=== PATIENT | male | born 1995 | race Caucasian/White ===

== ENCOUNTER 2019-03-31 00:50 | Emergency (ER) | payer BC ==
[~2019-03-31] VITALS: Ht 175.2 cm; Wt 102.1 kg
[~2019-03-31 00:50] MED LIST: CLINDAMYCIN HC300 MG PO
== END 2019-03-31 02:04 | disposition home or self-care (01) ==
LOC: ED 00:50
DX: S51.011A Laceration without foreign body of right elbow, initial encounter (principal); Z79.2 Long term (current) use of antibiotics; W10.8XXA Fall (on) (from) other stairs and steps, initial encounter; Y93.89 Activity, other specified; Y92.89 Other specified places as the place of occurrence of the external cause; Y99.8 Other external cause status

== ENCOUNTER → 2020-11-30 | Outpatient (CLI) | payer BC | END | disposition home or self-care (01) | LOC: RAD 08:49 | PROVIDERS: ATTEND Nurse Practitioner Family | DX: I10 Essential (primary) hypertension (principal); Z83.3 Family history of diabetes mellitus ==

== ENCOUNTER → 2021-01-08 | Outpatient (CLI) | payer BC | END | disposition home or self-care (01) | LOC: US 07:19 | PROVIDERS: ATTEND Nurse Practitioner Family | DX: R17 Unspecified jaundice (principal); R10.0 Acute abdomen ==

== ENCOUNTER → 2021-04-02 | Outpatient (CLI) | payer BC | END | disposition home or self-care (01) | LOC: NM 03-26 09:45 | PROVIDERS: ATTEND Nurse Practitioner Family | DX: R17 Unspecified jaundice (principal); K90.49 Malabsorption due to intolerance, not elsewhere classified ==

== ENCOUNTER → 2021-05-08 | Day surgery (SDC) | payer BC ==
[~2021-05-08] VITALS: Ht 175.2 cm; Wt 104.3 kg
[~2021-05-08] MED LIST changes: +CALCIUM500 M1 PO; +CARAFATE1 G1 PO; +HYDROCHLOROTHIA25 M1 PO; +PROTONIX40 MG PO; +SUNMARK OMEPRAZ20 MG PO
[2021-05-08 08:50] VITALS: BP 140/95
[2021-05-08 09:58] VITALS: BP 113/64
[2021-05-08 10:15] VITALS: BP 108/69
[2021-05-08 10:30] VITALS: BP 122/71
== END | disposition home or self-care (01) ==
LOC: SDC 05-05 08:45
PROVIDERS: ATTEND Surgery
DX: R19.4 Change in bowel habit (principal); K29.50 Unspecified chronic gastritis without bleeding; K20.90 Esophagitis, unspecified without bleeding; Z90.49 Acquired absence of other specified parts of digestive tract; Z79.899 Other long term (current) drug therapy; Z20.822 Contact with and (suspected) exposure to COVID-19

== ENCOUNTER → 2022-07-02 | Outpatient (CLI) | payer BC ==
[2022-07-02 07:42] LABS: BASO % 0.5 % (0.0-1.0); EOS # 0.1 10*3/uL (0.0-0.4); EOS % 1.3 % (1.0-4.0); HEMATOCRIT 45.8 % (42.0-52.0); LYMPH # 2.1 10*3/uL (1.3-4.4); LYMPH % 33.1 % (27.0-41.0); MEAN CELL VOLUME 87.7 fl (80.0-94.0); MEAN CORPUSCULAR HGB 31.8 pg (27.0-31.0); MEAN CORPUSCULAR HGB CONC 36.2 g/dl (33.0-37.0); MEAN PLATELET VOLUME 8.8 fl (9.6-12.3); MONO # 0.5 10*3/uL (0.1-1.0); MONO % 7.2 % (3.0-9.0); NEUT # 3.6 10*3/uL (2.3-7.9); NEUT % 57.6 % (47.0-73.0); PLATELET COUNT AUTOMATED 207 10*3/uL (130-400); RED BLOOD COUNT 5.22 10*6/uL (4.50-5.90); RED CELL DISTRI WIDTH 11.8 % (0-14.5); WHITE BLOOD COUNT 6.2 10*3/uL (4.8-10.8)
[2022-07-02 08:01] LABS: ALKALINE PHOSPHATASE 59 U/L (45-117); BUN 15 mg/dl (7-24); CHLORIDE 109 mmol/L (98-107); CHOLESTEROL 144 mg/dL (<200); CREATININE 1.02 mg/dL (0.70-1.30); LDL CHOLESTEROL 98 mg/dL (9-159); POTASSIUM 3.8 mmol/L (3.5-5.1); SGOT/AST 31 IU/L (3-35); SGPT/ALT 54 U/L (12-78); SODIUM 142 mmol/L (136-145); TRIGLYCERIDES 64 mg/dl (<150)
== END | disposition home or self-care (01) ==
LOC: LAB 07:30
PROVIDERS: ATTEND Nurse Practitioner Family
DX: I10 Essential (primary) hypertension (principal); E55.9 Vitamin D deficiency, unspecified; R17 Unspecified jaundice

== ENCOUNTER → 2023-04-15 | Outpatient (CLI) | payer BC ==
[2023-04-15 17:53] LABS: ALKALINE PHOSPHATASE 58 U/L (46-116); BUN 12 mg/dl (9-23); CHLORIDE 106 mmol/L (98-107); CHOLESTEROL 134 mg/dL (<200); LDL CHOLESTEROL 86 mg/dL (9-159); POTASSIUM 4.1 mmol/L (3.4-5.1); SGPT/ALT 37 U/L (10-49); TOTAL PROTEIN 7.1 gm/dL (6.0-8.0); TRIGLYCERIDES 56 mg/dl (<150)
[2023-04-15 18:02] LABS: BASO % 0.3 % (0.0-1.0); EOS % 0.5 % (1.0-4.0); HEMATOCRIT 42.5 % (42.0-52.0); LYMPH # 2.5 10*3/uL (1.3-4.4); MEAN CELL VOLUME 89.3 fl (80.0-94.0); MEAN CORPUSCULAR HGB 31.9 pg (27.0-31.0); MEAN CORPUSCULAR HGB CONC 35.8 g/dl (33.0-37.0); MEAN PLATELET VOLUME 9.1 fl (9.6-12.3); MONO # 0.5 10*3/uL (0.1-1.0); MONO % 6.7 % (3.0-9.0); NEUT # 4.8 10*3/uL (2.3-7.9); NEUT % 60.2 % (47.0-73.0); PLATELET COUNT AUTOMATED 192 10*3/uL (130-400); RED BLOOD COUNT 4.76 10*6/uL (4.50-5.90); RED CELL DISTRI WIDTH 12.1 % (0-14.5); WHITE BLOOD COUNT 7.9 10*3/uL (4.8-10.8)
== END | disposition home or self-care (01) ==
LOC: LAB 17:13
PROVIDERS: ATTEND Nurse Practitioner Family
DX: I10 Essential (primary) hypertension (principal); E55.9 Vitamin D deficiency, unspecified; K20.90 Esophagitis, unspecified without bleeding; Z83.3 Family history of diabetes mellitus

== ENCOUNTER → 2023-05-03 | Outpatient (CLI) | payer BC | END | disposition home or self-care (01) | LOC: US 01:02 | PROVIDERS: ATTEND Nurse Practitioner Family | DX: K76.0 Fatty (change of) liver, not elsewhere classified (principal); I10 Essential (primary) hypertension; K20.90 Esophagitis, unspecified without bleeding ==

== ENCOUNTER → 2023-12-09 | Outpatient (CLI) | payer BC ==
[2023-12-09 17:40] LABS: BASO % 0.3 % (0.0-1.0); EOS # 0.1 10*3/uL (0.0-0.4); EOS % 1.6 % (1.0-4.0); HEMATOCRIT 42.1 % (42.0-52.0); LYMPH # 2.7 10*3/uL (1.3-4.4); LYMPH % 36.4 % (27.0-41.0); MEAN CELL VOLUME 88.8 fl (80.0-94.0); MEAN CORPUSCULAR HGB 30.6 pg (27.0-31.0); MEAN CORPUSCULAR HGB CONC 34.4 g/dl (33.0-37.0); MEAN PLATELET VOLUME 8.7 fl (9.6-12.3); MONO # 0.5 10*3/uL (0.1-1.0); MONO % 7.1 % (3.0-9.0); NEUT % 54.3 % (47.0-73.0); PLATELET COUNT AUTOMATED 187 10*3/uL (130-400); RED BLOOD COUNT 4.74 10*6/uL (4.50-5.90); RED CELL DISTRI WIDTH 12.1 % (0-14.5); WHITE BLOOD COUNT 7.4 10*3/uL (4.8-10.8)
[2023-12-09 18:01] LABS: ALKALINE PHOSPHATASE 58 U/L (46-116); BUN 16 mg/dl (9-23); CHLORIDE 105 mmol/L (98-107); CHOLESTEROL 134 mg/dL (<200); LDL CHOLESTEROL 84 mg/dL (9-159); POTASSIUM 3.8 mmol/L (3.4-5.1); SGPT/ALT 34 U/L (5-49); TOTAL PROTEIN 6.8 gm/dL (6.0-8.0); TRIGLYCERIDES 53 mg/dl (<150)
== END | disposition home or self-care (01) ==
LOC: LAB 16:52
PROVIDERS: ATTEND Nurse Practitioner Family
DX: I10 Essential (primary) hypertension (principal); R17 Unspecified jaundice